=== PATIENT | female | born 1985 | race Caucasian/White ===

== ENCOUNTER 2020-11-15 13:49 | Emergency (ER) | payer BC, SELFPAY ==
--- NOTE | ~2020-11-15 | CT_ITS ---
EXAMINATION: CT abdomen pelvis w con EXAM DATE: 11/15/2020 15:07 INDICATION: Low back pain. Urinary tract infection. TECHNIQUE: Spiral CT of the abdomen and pelvis was performed following intravenous injection of 100 m L Omnipaque 350. Axial, coronal and sagittal images of the abdomen and pelvis were reviewed. The do se-length product (DLP) for this examination was 937.39 mGy-cm. The exposure was tailored according to patient size (auto mA exposure control), and iterative reconstruction (ASIR) was used as additiona l dose reduction technique. There is no prior study for comparison. FINDINGS: There is hepatic steatosis without suspicious focal lesion identified. Spleen, adrenal glan ds, pancreas are unremarkable. The gallbladder is contracted but otherwise unremarkable. Portal and splenic veins are patent. Kidneys enhance symmetrically. There is no hydronephrosis. The uterus and ovaries are unremarkable, no adnexal mass. The bladder is unremarkable. There is no retroperito miguel or pelvic lymphadenopathy. The appendix is normal. The stomach and small bowel are unremarkable. There is expected amount of c olonic stool. No free intraperitoneal gas. The heart is normal in size. There are no pericardial or pleural effusions. The lung bases are unremarkable. There are no osteoblastic or osteolytic les ions identified. IMPRESSION: 1. No acute intra-abdominal findings. Reviewed, dictated and finalized at location B.
[2020-11-15 13:56] VITALS: BP 147/78; PULSE 88; RESP 20; TEMP 36.9; O2SAT 96
[2020-11-15 14:24] LABS: Add Urine Microscopic? YES; Appearance Urine Cloudy (Clear); Bacteria Urine Trace /hpf; Bilirubin Urine Negative (Negative); Blood Urine Negative (Negative); Color Urine Yellow (Yellow); Glucose Urine UA Negative (Negative); Ketones Urine Negative (Negative); Leukocyte Esterase Ur 3+ LEU/UL (Negative); Mucus Urine Heavy /lpf; Nitrate Urine Negative (Negative); Protein Urine 1+ mg/dL (Negative); RBC Urine 0-2 /hpf (0-2); Specific Grav Ur 1.027 (1.001-1.035); Squamous Epithelial Cell Urine Many /hpf (Few); Urobilinogen Urine Negative mg/dL (<2.0); WBC Urine 21-30 /hpf
[2020-11-15] MEDS: SODIUM CHLORIDE 0.9% IV 1,000 ML 999 ML IV CONT (14:24)
[2020-11-15 14:38] LABS: Basophils Absolute Auto 0.1 K/mm3 (0.0-0.1); Eosinophils Absolute Auto 0.2 K/mm3 (0-0.3); Eosinophils Percent Auto 2.4 % (0-4.4); Hematocrit 38.4 % (37.0-47.0); Hemoglobin 12.4 g/dL (12.0-15.0); Immature Granulocyte Absolute 0.01 K/mm3 (0.00-0.031); Immature Granulocyte Percent A 0.2 % (0-0.5); Lymphocytes Absolute Auto 2.33 K/mm3 (0.9-3.2); Lymphocytes Percent Auto 37.9 % (18.3-44.2); Mean Corpuscular HGB Conc 32.3 g/dl (32-36); Mean Corpuscular Volume 83.5 fl (80-100); Mean Platelet Volume 11.1 fl (7.4-10.4); Monocytes Absolute Auto 0.5 K/mm3 (0.1-0.6); Neutrophils Absolute Auto 3.1 K/mm3 (1.3-6.7); Neutrophils Percent Auto 50.5 % (45.5-73.1); Platelet Count Result 200 k/mm3 (150-375); Red Cell Distribution Width 13.2 % (11.5-14.5); White Blood Count 6.2 K/mm3 (4.5-10.0)
[2020-11-15 14:47] LABS: Alanine Aminotransferase 81 U/L (4-35); Albumin Level 4.1 g/dL (3.5-5.1); Alkaline Phosphatase 57 U/L (38-126); Anion Gap 9 mmol/L (8-16); Aspartate Amino Transferase 81 U/L (14-36); Bilirubin,Total 0.1 mg/dL (0.2-1.3); Blood Urea Nitrogen 11 mg/dL (7-17); Carbon Dioxide 23 mmol/L (22-30); Chloride 108 mmol/L (98-107); Estimated CRCL calculation 101 ml/min; Estimated Glomerular Filt Rate > 60; Glucose 109 mg/dL (65-105); Lipase 165 U/L (23-300); Potassium 4.1 mmol/L (3.4-5.0); Sodium 140 mmol/L (137-145)
[2020-11-15] MEDS: MORPHINE SULFATE (*CRX) 4 MG/ML INJ IV PUSH (15:31)
--- NOTE | 2020-11-15 16:15 | ED.BACK ---
HPI - Back Pain/Injury General Chief Complaint: Back Pain/Injury Stated Complaint: L flank pain Time Seen by Provider: 11/15/20 13:53 Source: RN notes reviewed History of Present Illness HPI Narrative: Patient presents emergency department from home for lower back pain. Patient states symptoms began this morning pain is located bilateral lower back and goes into the buttocks that is worse with movement states she took an Aleve at home with minimal relief of the pain she denies any fevers or chills, chest pain shortness of breath abdominal pain, nausea vomiting diarrhea or any other symptoms. Patient states she is on Macrobid for the past 3 days for UTI Related Data Allergies Allergy/AdvReac Type Severity Reaction Status Date / Time Penicillins Allergy Rash Verified 11/15/20 14:04 Review of Systems Review of Systems: Narrative: Gen.: Denies fevers or chills ENT: Denies congestion Respiratory: Denies shortness of breath or cough CV: Denies chest pain or palpitations GI: Denies abdominal pain nausea, emesis or diarrhea patient states she is on Macrobid for UTI Musculoskeletal: Reports low back pain Neuro: Denies numbness, tingling, weakness or focal weakness Skin: Denies rash Except as documented, all other systems reviewed and negative PMFSH Past Medical History Medical History (Updated 11/15/20 @ 16:20 by Piero Schwartz DO) Patient denies significant medical history Social History Social History (Updated 11/15/20 @ 16:17 by Piero Schwartz DO) Smoking status: Never smoker Exam Narrative: Exam Narrative: APPEARANCE: No acute distress, nontoxic, resting in bed Eyes: EOMI HEENT: Normocephalic, atraumatic, CV: Regular rate and rhythm without murmur RESPIRATORY: No respiratory distress. Clear to auscultation bilaterally. Abdomen: Soft and nontender, no rebound or guarding MUSCULOSKELETAl: Moves all extremities, no clubbing cyanosis or edema Back: No midline lumbar tenderness to palpation or step-off, tender to palpation over bilateral paravertebral muscles L3-5 , pain increased with forward flexion and rotation of the torso NEURO: Awake and alert. Following commands, speech normal, no focal deficits, muscle strength 5 out of 5 bilateral lower extremities, bilateral patellar reflex 2+ SKIN:: Warm, dry. Normal Color no rash or lesions Course Course Emergency Course: Discussed with patient results of workup and diagnosis. Discussed need for follow-up with primary care, proper use of medication, and reasons to return to the emergency department. Patient understands and agrees to current treatment plan discussed with patient mildly elevated liver enzymes need for follow-up as outpatient discussed need to stop Macrobid and will start on Bactrim Vital Signs Vital signs: Vital Signs Temperature 98.4 F 11/15/20 13:56 Pulse Rate 88 11/15/20 13:56 Respiratory Rate 20 11/15/20 13:56 Blood Pressure 147/78 H 11/15/20 13:56 Pulse Oximetry 96 11/15/20 13:56 Temperature 98.4 F 11/15/20 13:56 Pulse Rate 88 11/15/20 13:56 Respiratory Rate 20 11/15/20 13:56 Blood Pressure 147/78 H 11/15/20 13:56 Pulse Oximetry 96 11/15/20 13:56 MDM - Back Pain/Injury MDM Narrative Medical decision making narrative: Patient?s pain is positional and localized to back without signs of cord compression or cauda equina. Normal nuerologic exams. No fever noted and no significant risk factors for osteomyelitis or spinal epidural abscess. No symptoms or signs to suggest pain is referred from abdominal or source. There are no pulsatile masses to exam. Patient ambulates with a steady gait and is felt to be up reasonable candidate for continued outpatient management Lab Data Result diagrams: 11/15/20 14:19 11/15/20 14:19 Labs: Lab Results 11/15/20 11/15/20 11/15/20 Range/Units 14:05 14:19 14:19 WBC 6.2 (4.5-10.0) K/mm3 RBC 4.60 (4.2-5.4) M/mm3 Hgb 12.4 (12.0-15.
[2020-11-15 16:35] VITALS: BP 118/75; PULSE 72; RESP 18; O2SAT 100
== END 2020-11-15 16:35 | disposition home or self-care (01) ==
PROVIDERS: Emergency Provider Emergency Medicine; PCP Nurse Practitioner Family
DX: N39.0 Urinary tract infection, site not specified (principal)
CPT/HCPCS: 36415; 74177; 80053; 81001; 81025; 83690; 85025; 87086; 96361; 96365; 96375; 99284; A9270; J0131; J2270; J7030; Q9967

== ENCOUNTER 2021-12-24 08:54 | Outpatient (CLI) | payer OTHER, SELFPAY ==
--- NOTE | ~2021-12-24 | US_ITS ---
EXAMINATION: US thyroid DATE: 12/24/2021 09:47 INDICATION: Dysphagia. TECHNIQUE: Multiple ultrasound images of the thyroid were obtained. COMPARISON: None. FINDINGS: The right thyroid lobe measures 4.2 x 0.9 x 1.3 cm. The left thyroid lobe measures 3.7 x 0.7 x 1.4 c m. There is normal echotexture and echogenicity throughout the thyroid gland. No discrete nodules id entified. Normal vascular flow is present. IMPRESSION: 1. Normal thyroid. Reviewed, dictated and finalized at location B. IMPRESSION: 1. Normal thyroid.
== END 2021-12-24 08:55 | disposition home or self-care (01) ==
LOC: ANHIMG 08:58
PROVIDERS: PCP Nurse Practitioner Family; Visit Provider Nurse Practitioner Family
DX: R13.10 Dysphagia, unspecified (principal)
CPT/HCPCS: 76536

== ENCOUNTER 2023-05-27 08:00 | Outpatient (NON) | payer OTHER, SELFPAY | END 2023-05-27 08:01 | disposition home or self-care (01) | LOC: ANHLAB 05-28 14:35 | PROVIDERS: PCP Nurse Practitioner Family; Visit Provider Nurse Practitioner | DX: D22.4 Melanocytic nevi of scalp and neck (principal); D22.62 Melanocytic nevi of left upper limb, including shoulder; D22.71 Melanocytic nevi of right lower limb, including hip; D22.5 Melanocytic nevi of trunk | CPT/HCPCS: 88305 ==

== ENCOUNTER 2023-10-10 15:53 | Outpatient (CLI) | payer OTHER, SELFPAY ==
--- NOTE | ~2023-10-10 | MM_ITS ---
EXAMINATION: MM screening kimi BI w joann HISTORY: Screening mammogram TECHNIQUE: Craniocaudal and mediolateral oblique 3-D tomosynthesis images were obtained and synthetic 2-D images were generated. CAD analysis was submitted and interpreted. COMPARISON: No prior mammogram is available for comparison at this institution. BREAST PARENCHYMAL COMPOSITION: There are scattered areas of fibroglandular density. FINDINGS: There is no evidence of suspicious mass, calcification, or architectural distortion to sugg est malignancy in either breast. There has been no suspicious interval change. IMPRESSION: 1. No mammographic evidence of malignancy. 2. Recommend routine screening mammography in one year. BI-RADS Category 1: Negative Reviewed, dictated and finalized at location A.
== END 2023-10-10 15:54 ==
PROVIDERS: PCP Nurse Practitioner; Visit Provider Nurse Practitioner
DX: Z12.31 Encounter for screening mammogram for malignant neoplasm of breast (principal)
CPT/HCPCS: 77063; 77067